=== PATIENT | male | born 1945 | race Caucasian/White ===

== ENCOUNTER → 2017-06-08 | Day surgery (SDC) | payer MEDICARE, OTHER ==
[2017-06-05 10:53] LABS: Basophils # (auto) 0 uL; Basophils % (auto) 0.4 % (0.0-2.0); CONDITION Y; Eosinophils # (auto) 0.3 uL; Eosinophils % (auto) 2.8 % (0.0-7.0); Hematocrit 47.5 % (41.0-53.0); Hemoglobin 16.1 g/dL (13.5-17.5); Lymphocytes # (auto) 1.7 uL; Mean Corpuscular Hgb Conc. 33.9 g/dL (32.0-36.0); Mean Corpuscular Volume 88.7 fL (80.0-100.0); Mean Platelet Volume 9.4 fL (7.4-10.4); Monocytes # (auto) 1.1 uL; Monocytes % (auto) 11.9 % (0.0-12.0); Neutrophils # (auto) 5.9 uL; Neutrophils % (auto) 65.9 % (37.0-80.0); Platelet Count (auto) 247 10^3/uL (140-450); Red Cell Distribution Width 14.6 % (11.6-16.0)
[2017-06-05 10:59] LABS: Urine Bilirubin Negative (Negative); Urine Blood Negative /uL (Negative); Urine Color Yellow (Yellow); Urine Glucose Normal (Normal); Urine Ketone Negative (Negative); Urine Nitrite Negative (Negative); Urine RBC 1 /hpf (0 - 3); Urine Squamous Epithelial Cell FEW /hpf (<5); Urine Urobilinogen Normal (Negative); Urine pH 6.5 (5.0-8.0)
[2017-06-05 11:05] LABS: INR 1.03 (0.9-1.15); Partial Thromboplastin Time 34.6 sec (22.64-33.71); Prothrombin Time 11.2 sec (9.37-12.3)
[2017-06-05 11:11] LABS: Bilirubin, Total 0.8 mg/dL (0.2-1.0); Calcium 8.9 mg/dL (8.5-10.1); Total Protein 7.6 g/dL (6.4-8.2)
[~2017-06-08] VITALS: Ht 182.9 cm; Wt 93.4 kg
[~2017-06-08] MED LIST: ALEN70TA2 PO; ASPI81CH43; BACITRACIN INJ 50000 UNIT VIAL ONE; BUPIVACAINE 0.25% INJ 50ML VIAL ONE; CALC500C71; CETI1TAB36 PO; FLUT250M2 INH; LIDOCAINE 1% HCL (LOCAL ANESTH.) INJ 20ML MDV ONE; LISI-275; MONT10TA23; MULTCHW; OMEG100062; RANI-185; TAM04C
[2017-06-08 07:55] VITALS: BP 164/100
== END | disposition home or self-care (01) ==
LOC: SUR 07:48
PROVIDERS: ATTEND Orthopaedic Surgery
DX: M65.342 Trigger finger, left ring finger (principal); J45.909 Unspecified asthma, uncomplicated
CPT/HCPCS: 26055; 36415; 80053; 81001; 85025; 85610; 85730; J2001; J3490; J7030

== ENCOUNTER → 2017-08-10 | Day surgery (SDC) | payer MEDICARE, OTHER ==
[2017-08-07 11:38] LABS: Basophils # (auto) 0.1 uL; Basophils % (auto) 0.8 % (0.0-2.0); Eosinophils # (auto) 0.2 uL; Eosinophils % (auto) 2.6 % (0.0-7.0); Hematocrit 48.1 % (41.0-53.0); Hemoglobin 16.5 g/dL (13.5-17.5); Lymphocytes # (auto) 1.6 uL; Lymphocytes % (auto) 20.5 % (10.0-50.0); Mean Corpuscular Hemoglobin 30.4 pg (28.0-32.0); Mean Corpuscular Hgb Conc. 34.3 g/dL (32.0-36.0); Mean Corpuscular Volume 88.4 fL (80.0-100.0); Mean Platelet Volume 8.9 fL (6.9-10.8); Monocytes % (auto) 12.9 % (0.0-12.0); Neutrophils # (auto) 4.9 uL; Neutrophils % (auto) 63.2 % (37.0-80.0); Nucleated Red Blood Cells % 0.2 %; Platelet Count (auto) 212 10^3/uL (140-450); Red Cell Distribution Width 14.1 % (11.8-14.3); White Blood Cell 7.7 10^3/uL (4.4-10.8)
[2017-08-07 11:46] LABS: INR 1.05 (0.9-1.15); Partial Thromboplastin Time 32.6 sec (22.64-33.71); Prothrombin Time 11.4 sec (9.37-12.3)
[2017-08-07 11:57] LABS: Urine Bilirubin Negative (Negative); Urine Blood TRACE /uL (Negative); Urine Color Yellow (Yellow); Urine Glucose Normal (Normal); Urine Ketone Negative (Negative); Urine Nitrite Negative (Negative); Urine RBC 1 /hpf (0 - 3); Urine Squamous Epithelial Cell FEW /hpf (<5); Urine Urobilinogen Normal (Negative)
[2017-08-07 12:25] LABS: Albumin 3.9 g/dL (3.4-5.0); BUN/Creatinine Ratio 13.7; Bilirubin, Total 0.7 mg/dL (0.2-1.0); Calcium 8.8 mg/dL (8.5-10.1); Potassium 4.4 mmol/L (3.5-5.1); Total Protein 7.6 g/dL (6.4-8.2)
[~2017-08-10] VITALS: Ht 182.9 cm; Wt 93.0 kg
[~2017-08-10] MED LIST changes: -BACITRACIN INJ 50000 UNIT VIAL ONE; -BUPIVACAINE 0.25% INJ 50ML VIAL ONE
[2017-08-10 11:08] VITALS: BP 153/89
== END | disposition home or self-care (01) ==
LOC: SUR 08:09
PROVIDERS: ATTEND Orthopaedic Surgery
DX: M65.351 Trigger finger, right little finger (principal)
CPT/HCPCS: 26055; 36415; 80053; 81001; 85025; 85610; 85730; J2001